=== PATIENT | male | born 1990 | race Hispanic/Latino ===

== ENCOUNTER 2019-02-22 10:14 | Emergency (ER) | payer SELFPAY | END 2019-02-22 13:30 | disposition home or self-care (01) | LOC: ERS 10:14 | DX: J02.8 Acute pharyngitis due to other specified organisms (principal) | CPT/HCPCS: 87081; 87430; 99283 ==

== ENCOUNTER 2021-02-25 14:03 | Emergency (ER) | payer SELFPAY | END 2021-02-25 18:30 | disposition left against medical advice (07) | LOC: ERS 14:03 | DX: Z53.21 Procedure and treatment not carried out due to patient leaving prior to being seen by health care provider (principal) | CPT/HCPCS: 71045; 93005 ==

== ENCOUNTER 2024-02-02 21:15 | Emergency (ER) | payer OTHER, SELFPAY ==
[2024-02-02] MEDS ORDERED: Ketorolac Tromethamine 30 MG (1 mL) VIAL ONE (21:49)
[2024-02-02] MEDS ORDERED: Cyclobenzaprine 10 MG TAB ONE (21:49)
[2024-02-02] MEDS ORDERED: HYDROcodone/Acetaminophen 5/325 mg Tablet ONE (22:02)
== END 2024-02-02 22:22 | disposition home or self-care (01) ==
LOC: ERS 21:15
DX: M54.42 Lumbago with sciatica, left side (principal)
CPT/HCPCS: 99283; J1885